=== PATIENT | female | born 1990 | race American Indian/Alaskan Native ===

== ENCOUNTER 2017-06-27 09:05 | Emergency (ER) | payer SELFPAY ==
[2017-06-27 09:19] VITALS: TEMP 98.1; BMI 43.6
[2017-06-27 10:17] LABS: URINE APPEARANCE CLOUDY; URINE BILIRUBIN NEGATIVE (NEGATIVE); URINE BLOOD NEGATIVE (NEGATIVE); URINE COLOR YELLOW; URINE GLUCOSE (UA) NEGATIVE (NEGATIVE); URINE KETONE TRACE (NEGATIVE); URINE NITRITE NEGATIVE (NEGATIVE); URINE UROBILINOGEN NEGATIVE mg/dL (0.2-1.0)
[2017-06-27 10:18] LABS: URINE LEUK ESTERASE 3+ (NEGATIVE); URINE PROTEIN 1+ (NEGATIVE)
[2017-06-27 10:21] LABS: URINE MUCUS MODERATE; URINE RBC 2 /hpf (0-3); URINE WBC 416 /hpf (3-5)
[2017-06-27 10:27] LABS: BASOPHIL 0.5 % (0-2.0); EOSINOPHIL 0.1 % (0-4.5); MCH 28.9 pg (25.7-33.7); MCHC 32.8 g/dl (32.0-36.0); MEAN CELL VOLUME 88.3 fl (80-96); MEAN PLT VOLUME 8.5 fl (7.5-11.1); NEUTROPHILS 69.7 % (42.8-82.8); PLATELET COUNT 345 K/MM3 (134-434); RDW 14.4 % (11.6-15.6)
--- NOTE | 2017-06-27 10:29 | PDOC ---
History of Present Illness - General Chief Complaint: Pain, Acute Stated Complaint: PAIN, 6 WKS Time Seen by Provider: 06/27/17 09:32 History Source: Patient Exam Limitations: No Limitations - History of Present Illness Travel History: No Initial Comments: 06/27/17 09:54 26-year-old female presents to the emergency department with complaints of lower abdominal cramping intimately for the past week associated with urinary frequency and dysuria. Patient denies vaginal discharge or vaginal bleeding. Patient states is currently 6 weeks and has a initial consultation with Dr. Douglas LAY OUT MAKER in 3 weeks. Patient states last week went to [facility] similar complaints and was given up his prescription for Keflex which she states completed yesterday along with a beta hCG which was recorded at 507. Patient states did not wait for ultrasound and went home. Patient has no other complaints at this time including fever, chills nausea or constipation. Timing/Duration: reports: constant Quality: reports: mild, cramping Abdominal Pain Onset Location: reports: suprapubic (mid) Pain Radiation: reports: no radiation Activities at Onset: reports: none Aggravating Factors: improves with: None Alleviating Factors: improves with: None Past History - Travel Traveled outside of the country in the last 30 days: No - Past Medical History Allergies/Adverse Reactions: Allergies Allergy/AdvReac Type Severity Reaction Status Date / Time No Known Allergies Allergy Verified 06/27/17 09:14 Home Medications: Ambulatory Orders Vits #93/Iron Fum/FA [ Formula Tablet] 1 each PO DAILY Other medical history: DENIES - Reproductive History LMP Normal: No Is Patient Now?: Yes (#): 2 Para: 1 - Immunization History Immunization Up to Date: Yes - Suicide/Smoking/Psychosocial Hx Smoking History: Never smoked Have you smoked in the past 12 months: No Information on smoking cessation initiated: No Hx Alcohol Use: No Drug/Substance Use Hx: No Patient Lives Alone: No Lives with/in: spouse/SO Review of Systems - Review of Systems Able to Perform ROS?: Yes Constitutional: No: Symptoms Reported HEENTM: No: Symptoms Reported Respiratory: No: Symptoms reported Cardiac (ROS): No: Symptoms Reported ABD/GI: Yes: Abdominal cramping : Yes: Dysuria, Frequency. No: Flank Pain Musculoskeletal: No: Symptoms Reported Integumentary: No: Symptoms Reported Neurological: No: Symptoms reported *Physical Exam - Vital Signs Last Vital Signs Temp Pulse Resp BP Pulse Ox 98.1 F 78 15 140/80 95 06/27/17 09:15 06/27/17 09:15 06/27/17 09:15 06/27/17 09:15 06/27/17 09:15 - Physical Exam General Appearance: Yes: Nourished, Appropriately Dressed. No: Apparent Distress Neck: positive: Supple Respiratory/Chest: positive: Lungs Clear, Normal Breath Sounds. negative: Respiratory Distress, Accessory Muscle Use Cardiovascular: positive: Regular Rhythm, Regular Rate. negative: Murmur Female Pelvic Exam: positive: normal external exam, other (pt refused internal exam). negative: discharge, vaginal bleeding Gastrointestinal/Abdominal: positive: Normal Bowel Sounds, Soft, Tenderness ( mild mid suprapubic. no rebound no guarding). negative: Distended Musculoskeletal: negative: CVA Tenderness Integumentary: positive: Normal Color, Warm, Moist Neurologic: positive: Motor Strength 5/5 (ambulatory) ED Treatment Course - LABORATORY CBC & Chemistry Diagram: 06/27/17 09:59 06/27/17 09:59 - RADIOLOGY Radiology Studies Ordered: Category Date Time Status <14WKS US [US] Stat Ultrasound 06/27/17 09:54 Ordered Medical Decision Making - Medical Decision Making 06/27/17 10:32 Patient currently 6 weeks but no complaints of urinary frequency and dysuria and lower abdominal cramping. Patient has not had an ultrasound for this and is due to see Dr. Santos and 3 weeks. Patient on exam had mild mid suprapubic tenderness and deferred internal exam patient with a CBC, comp, beta hCG along with urinalysis urine culture. Patient offered Tylenol but refused. Patient ordered for transvaginal less than 14 weeks ultrasound. Will r/o uti, ectopic, and assess renal function 06/27/17 12:54 Laboratory Tests 06/27/17 06/27/17 06/27/17 09:59 09:59 09:59 WBC 12.0 H Hgb 13.0 Hct 39.8 Plt Count 345 Neutrophils % 69.7 Sodium 137 Potassium 3.9 Chloride 103 Carbon Dioxide 29 Anion Gap 5 L BUN 3 L Creatinine 0.5 L Total Bilirubin 0.3 Beta HCG, Quant 1434.7 Urine Protein 1+ H Urine Ketones Trace H Urine Urobilinogen Negative Urine RBC 2 Urine WBC 416 Ultrasound shows a normal-appearing endometrium of 7 mm thickness with no sonographic evidence of a viable intrauterine gestation. If a very early as clinically suspected, correlate with serial beta hCG and sonogram as recommended. The ovaries are normal in size and texture with no adnexal masses or free fluid collections. We will contact her LAY OUT MAKER Dr. Douglas. 06/27/17 13:[address] Douglas in regards to patient's beta hCG and no visible IUP. She feels patient is trending appropriately and may not have an intrauterine until 1500 beta-hCG. She feels comfortable having patient follow up in the office. Patient will be discharged home with Macrobid for urinary tract infection. Urine culture was sent. *DC/Admit/Observation/Transfer - Discharge Dispostion Disposition: HOME Condition at time of disposition: Good - Referrals Referrals: Mira Douglas MD [Staff Physician] - - Patient Instructions Printed Discharge Instructions: DI for Urinary Tract Infection (UTI) Additional Instructions: Please take antibiotics as prescribed until completed. You may take Tylenol for any discomfort. Please also follow-up with Dr. Douglas as scheduled. otherwise return to ED if symptoms worsen prior to your follow-up.
[2017-06-27 11:12] LABS: ALK PHOS 94 U/L (45-117)
[2017-06-27 11:20] LABS: ALBUMIN 3.4 g/dl (3.4-5.0); ANION GAP 5 (8-16); BILIRUBIN,TOTAL 0.3 mg/dL (0.2-1.0); CO2 29 mmol/L (21-32); CREATININE 0.5 mg/dL (0.55-1.02); GLUCOSE,RANDOM 92 mg/dL (74-106); SGOT/AST 15 U/L (15-37); SGPT/ALT 24 U/L (12-78); TOT PROT 7.2 g/dl (6.4-8.2)
[2017-06-27 13:48] VITALS: BP 128/78; PULSE 80
== END 2017-06-27 13:48 | disposition home or self-care (01) ==
LOC: JER 09:05 → JERFT 09:05 → JER 13:48
DX: O26.891 Other specified pregnancy related conditions, first trimester (principal); Z3A.01 Less than 8 weeks gestation of pregnancy
CPT/HCPCS: 36415; 76801-TC; 76856-TC; 80053; 81003; 81015; 84702; 85025; 87086; 87186; 99282-25

== ENCOUNTER 2017-09-06 18:00 | Emergency (ER) | payer OTHER ==
[2017-09-06 18:13] VITALS: BP 136/83; PULSE 85; TEMP 98.2; BMI 44.9
--- NOTE | 2017-09-06 19:18 | PDOC ---
History of Present Illness - General Chief Complaint: Pain Stated Complaint: FATIGUE (15 WKS ) Time Seen by Provider: 09/06/17 19:17 - History of Present Illness Initial Comments: 09/06/17 19:42 26yo woman who presents with nausea and several episodes of NBNB this morning. She denies any abdominal pain, fever, chills, diarrhea, melena or blood stools. No others household members with similar. No recent travel or sick contacts. She has care. She reports generalized weakness and myalgia starting this morning. Last sono was normal. History of eclampsia with first child. 09/06/17 19:47 09/06/17 19:51 Past History - Past Medical History Allergies/Adverse Reactions: Allergies Allergy/AdvReac Type Severity Reaction Status Date / Time No Known Allergies Allergy Verified 09/06/17 18:13 Home Medications: Ambulatory Orders Nitrofurantoin Monohyd/M-Cryst [Macrobid -] 100 mg PO BID #14 capsule 06/27/17 Vits #93/Iron Fum/FA [ Formula Tablet] 1 each PO DAILY COPD: No - Reproductive History (#): 2 Para: 1 - Immunization History Immunization Up to Date: Yes - Suicide/Smoking/Psychosocial Hx Smoking History: Never smoked Have you smoked in the past 12 months: No Hx Alcohol Use: No Drug/Substance Use Hx: No Substance Use Type: None *Physical Exam - Vital Signs Last Vital Signs Temp Pulse Resp BP Pulse Ox 98.2 F 85 20 136/83 98 09/06/17 18:11 09/06/17 18:11 09/06/17 18:11 09/06/17 18:11 09/06/17 18:11 - Physical Exam General Appearance: Yes: Nourished, Appropriately Dressed HEENT: positive: Normal ENT Inspection Neck: positive: Supple. negative: Lymphadenopathy (R), Lymphadenopathy (L) Respiratory/Chest: positive: Lungs Clear, Normal Breath Sounds Cardiovascular: positive: Regular Rhythm, Regular Rate, S1, S2 Female Pelvic Exam: positive: other (refused pelvic exam) Gastrointestinal/Abdominal: positive: Normal Bowel Sounds, Soft, Protuberent Musculoskeletal: negative: CVA Tenderness Extremity: positive: Normal Inspection Integumentary: positive: Normal Color Neurologic: positive: Fully Oriented, Alert Procedures - Bedside Ultrasound Bedside Ultrasound: supervisor lamp shades Remarks: 12/06/17 20:25 Bedside sono performed. HR 171 bpm and normal motions were observed. ED Treatment Course - LABORATORY CBC & Chemistry Diagram: 09/06/17 20:16 09/06/17 20:16 Medical Decision Making - Medical Decision Making 09/06/17 19:49 26yo woman who presents with acute onset nausea and NBNB emesis. Differential includes, but not limited to hyperemsis gravidum vs viral gastroenteritis. Will do -UA -Quant B hcg -Blood Acetone -CBC and CMP -1L Fluids for hydration -Reglan for nausea 09/06/17 19:51 UA revealed 1+ ketones. Patient refused 1L IVF, and requesting to go home. Explained to patient that she was dehydrated, and would be benefit from IVF. Patient acknowledged understanding, but still requesting to go home. Patient was able to tolerate crackers, apple juice, and water with no further episodes of emesis. Reports nausea improved with Reglan. VSS are stable. Will discharge patient home with instructions to follow-up with NARCOTICS INVESTIGATOR and to return if she has persistent emesis or cannot tolerate PO intake. Patient agreed with plan , and to continue drinking fluids. *DC/Admit/Observation/Transfer Diagnosis at time of Disposition: Nausea & vomiting - Referrals Referrals: Mira Douglas MD [Staff Physician] - Jeancarlos Barrios MD [Primary Care Provider] - - Patient Instructions Printed Discharge Instructions: DI for Hyperemesis Gravidarum Additional Instructions: Please see your COMBATANT DIVER OFFICER within the next week. Continue to drink fluids to stay hydrated. Please return to the Emergency Department if you have continuing vomiting, can' t keep any flood or fluids down, or have new, worsening, or concerning symptoms. - Post Discharge Activity
[2017-09-06] MEDS ORDERED: METOCLOPRAMIDE HCL INJECTION 10 MG/2 ML VIAL IVPUSH ONE (19:42)
[2017-09-06 19:54] LABS: URINE APPEARANCE SLCLOUDY; URINE BILIRUBIN NEGATIVE (NEGATIVE); URINE BLOOD NEGATIVE (NEGATIVE); URINE COLOR YELLOW; URINE GLUCOSE (UA) NEGATIVE (NEGATIVE); URINE KETONE 1+ (NEGATIVE); URINE LEUK ESTERASE TRACE (NEGATIVE); URINE NITRITE NEGATIVE (NEGATIVE); URINE PROTEIN NEGATIVE (NEGATIVE); URINE UROBILINOGEN NEGATIVE mg/dL (0.2-1.0)
[2017-09-06] MEDS ORDERED: METOCLOPRAMIDE HCL INJECTION 10 MG/2 ML VIAL ONE (19:58)
[2017-09-06 20:00] LABS: URINE BACTERIA RARE /hpf (NONE SEEN); URINE MUCUS MODERATE; URINE WBC 5 /hpf (3-5)
[2017-09-06] MEDS ORDERED: NYSTATIN POWDER 100,000 UNITS/GM - 15 GM TOPICAL POWDER TP ONE (20:11)
--- NOTE | 2017-09-06 20:15 | PDOC ---
Attending Attestation - Resident Resident Name: Alena Menon - ED Attending Attestation I have performed the following: I have examined & evaluated the patient, The case was reviewed & discussed with the resident, I agree w/resident's findings & plan, Exceptions are as noted - HPI HPI: 09/06/17 20:11 26-year-old currently 15+ weeks here today with nausea vomiting today 4. Patient states is more vomiting than usual for her denies abdominal pain no loss of fluid or vaginal bleeding no urinary complaints no sick contacts primary OB is Dr. Santos. No fever no chills no other complaints - Physicial Exam PE: 09/06/17 20:13 Awake alert no acute distress. Lungs are clear bilaterally. Heart is regular no murmurs rubs or gallops. Abdomen soft nontender. Pelvic patient refused. Extremities warm well perfused. - Medical Decision Making 09/06/17 20:14 26-year-old at 15 weeks with vomiting times for nontender abdominal exam differential includes acidosis, hypokalemia, hyperemesis, dehydration Plan: Bedside evaluation for heart rate and well-being. IV hydration and electrolytes ketones antiemetics and reassessment Focused ED bedside ultrasound, obstetrics Indication: Evaluate well-being Uterus scanned into planes with the curvilinear probe. movement noted heart rate measured an M mode at 1 71 bpm Impression: live IUp
[2017-09-06] MEDS: SODIUM CHLORIDE 1,000 ML IV STA ×2 (20:26→21:21)
[2017-09-06 20:30] LABS: BASOPHIL 0.5 % (0-2.0); EOSINOPHIL 0.2 % (0-4.5); MCH 29.6 pg (25.7-33.7); MCHC 33.6 g/dl (32.0-36.0); MEAN PLT VOLUME 9.1 fl (7.5-11.1); NEUTROPHILS 78.8 % (42.8-82.8); PLATELET COUNT 268 K/MM3 (134-434); WHITE BLOOD COUNT 13.8 K/mm3 (4.0-10.0)
[2017-09-06 21:05] LABS: ALBUMIN 3.2 g/dl (3.4-5.0); ANION GAP 9 (8-16); BILIRUBIN,TOTAL 0.5 mg/dL (0.2-1.0); CALCIUM 8.8 mg/dL (8.5-10.1); CO2 24 mmol/L (21-32); CREATININE 0.5 mg/dL (0.55-1.02); GLUCOSE,RANDOM 95 mg/dL (74-106); SGOT/AST 10 U/L (15-37); SGPT/ALT 15 U/L (12-78); TOT PROT 7.3 g/dl (6.4-8.2)
[2017-09-06 21:06] LABS: ALK PHOS 88 U/L (45-117)
[2017-09-06 21:15] LABS: ACETONE SERUM NEGATIVE (NEGATIVE)
[2017-09-06 22:43] LABS: URINE LEUK ESTERASE Negative (NEGATIVE)
== END 2017-09-06 21:26 | disposition home or self-care (01) ==
LOC: JER 18:00
PROC: 3E033GC Introduction of Other Therapeutic Substance into Peripheral Vein, Percutaneous Approach (ICD-10-PCS; principal; 2017-09-06)
DX: O26.892 Other specified pregnancy related conditions, second trimester (principal); Z3A.15 15 weeks gestation of pregnancy
CPT/HCPCS: 36415; 80053; 81003; 81015; 82009; 84703; 85025; 99284-25

== ENCOUNTER 2018-02-21 07:45 | Inpatient (IN) | payer OTHER ==
[2018-02-21] MEDS: ELECTROLYTE-148 SOLN 1,000 ML IV SCH ×2 (08:00→10:05)
[2018-02-21 08:45] VITALS: BMI 49.1
[2018-02-21] MEDS ORDERED: oxyCODONE HCL 5 MG TABLET PO PRN ×2 (10:45)
[2018-02-21] MEDS ORDERED: METHYLERGONOVINE MALEATE 0.2 MG/1 ML AMP IM PRN (10:45)
[2018-02-21] MEDS ORDERED: CITRIC ACID/SODIUM CITRATE 30 ML UNIT-DOSE CUP PO ONE (10:49)
[2018-02-21] MEDS ORDERED: morphine SULFATE/Preservative Free 0.5 MG/ML (1cc Syringe) ONE (11:03)
[2018-02-21] MEDS ORDERED: ceFAZolin SODIUM 1 GM VIAL ONE ×3 (11:03→11:19)
[2018-02-21] MEDS ORDERED: BUPIVACAINE 0.75% IN DEXTROSE/PF 2ML AMPULE NR ONE (11:03)
--- NOTE | 2018-02-21 11:04 | HP ---
Past Medical History - Admission Chief Complaint: Here for repeat delivery. History of Present Illness: 27 y/o with SIUP at 39+ weeks here for scheduled repeat delivery. Patient has complicated by maternal obesity. H/o delivery for pre Eclampsia at 37 weeks in past. No HTn this . Positive GBS. Negative HIV. O positive blood type History Source: Patient, Medical Record Limitations to Obtaining History: No Limitations - Past Medical History Cardiovascular: Yes: HTN (h/o Pre Eclampsia with past delivery) Pulmonary: No: Asthma, COPD Gastrointestinal: No: GERD ...: 2 ...Para: 1 ...Term: 1 ...LMP: 05/12/17 ... Weeks Gestation by Dates: 40.5 ...EDC by Dates: 02/16/18 ...EDC by Sono: 02/25/18 Heme/Onc: No: Anemia Infectious Disease: No: MRSA, STD's Psych: No: Anxiety, Bipolar, Depression Endocrine: No: Diabetes Mellitus - Past Surgical History Past Surgical History: Yes: Hx Myomectomy: No Hx Transabdominal Cerclage: No - Smoking History Smoking history: Never smoked Have you smoked in the past 12 months: No - Alcohol/Substance Use Hx Alcohol Use: No - Social History Usual Living Arrangement: Yes: With Spouse ADL: Independent History of Recent Travel: No Home Medications - Allergies Allergies/Adverse Reactions: Allergies Allergy/AdvReac Type Severity Reaction Status Date / Time No Known Allergies Allergy Verified 02/21/18 08:29 - Home Medications Home Medications: Ambulatory Orders NK [No Known Home Medication] 02/21/18 Review of Systems - Review of Systems Constitutional: reports: No Symptoms Eyes: reports: No Symptoms HENT: reports: No Symptoms Neck: reports: No Symptoms Cardiovascular: reports: No Symptoms Respiratory: reports: No Symptoms Gastrointestinal: reports: No Symptoms Genitourinary: reports: No Symptoms Breasts: reports: No Symptoms Reported Musculoskeletal: reports: No Symptoms Integumentary: reports: No Symptoms Neurological: reports: No Symptoms Endocrine: reports: No Symptoms Hematology/Lymphatic: reports: No Symptoms Psychiatric: reports: No Symptoms Physical Exam - Maternity Vital Signs: Vital Signs Temperature 98.4 F 02/21/18 09:24 Pulse Rate 76 02/21/18 09:24 Respiratory Rate 20 02/21/18 09:24 Blood Pressure 136/78 05/23/18 09:24 O2 Sat by Pulse Oximetry (%) Constitutional: Yes: Well Nourished, No Distress, Calm Eyes: Yes: Conjunctiva Clear, EOM Intact HENT: Yes: Atraumatic, Normocephalic Neck: Yes: Supple, Trachea Midline Breast(s): Yes: WNL - Abdominal Exam/OB Number of Fetuses: Single Presentation: Vertex Contractions: Yes Regularity: Irregular Intensity: Unaware Category: I Decelerations: None - Vaginal Exam/OB Speculum Exam: No Amniotic Membrane Status: Intact - Physical Exam Psychiatric: Yes: Alert, Oriented Hemorrhage Risk Assessment - Risk Factors Medium Risk Factors: Yes: Prior , uterine surgery,or multiple laparotomies, Obesity (BMI >40) Risk Score: 2 Risk Level: High Risk Problem List - Problems (1) History of delivery affecting Code(s): O34.219 - MATERNAL CARE FOR UNSP TYPE SCAR FROM PREVIOUS DEL (2) Obesity affecting in third trimester Code(s): O99.213 - OBESITY COMPLICATING , THIRD TRIMESTER Assessment/Plan 27 y/o with h/o prior delivery here for scheduled repeat c section. AFVSS FHTS cat 1 h/o Pre Eclampsia, BPs normal during and so far this admission obesity - will plan for lovenox post NPO braxton catheter anesthesia and nursery aware
[2018-02-21] MEDS ORDERED: OXYTOCIN 20 UNITS in 0.9% NS 40 UNIT/2,000 ML INFUS.BAG IV ONE (11:12)
[2018-02-21] MEDS ORDERED: ACETAMINOPHEN 325 MG TABLET (FP) PO PRN (11:22)
--- NOTE | 2018-02-21 12:00 | OP ---
Operative Note - Note: Operative Date: 02/21/18 ([id number]) Pre-Operative Diagnosis: prior delivery Operation: repeat delivery Findings: normal b/l tubes and ovaries Post-Operative Diagnosis: Same as Pre-op Surgeon: Amber Victoria Prefabricated Houses Trimmer: Anjali Winter Anesthesiologist/GREENSKEEPER SUPERVISOR: Alejo Mcguire Anesthesia: Spinal Specimens Removed: placenta Estimated Blood Loss (mls): 600 Operative Report Dictated: Yes
[2018-02-21] MEDS: OXYTOCIN 20 UNITS in 0.9% NS 20 UNIT/1,000 ML INFUS.BAG IV SCH (12:30)
--- NOTE | 2018-02-21 12:36 | SURG ---
Surgery Color Strainer Note Color Strainer: Jassi Dahl PA-C Date of Service: 02/21/18 Diagnosis: with prior history Procedure: I was present for the entirety of the operative procedure. For further detail, please refer to operative report.
[2018-02-21] MEDS ORDERED: IBUPROFEN 800 MG/8 ML IJ IVPB ONE (13:39)
[2018-02-21] MEDS: IBUPROFEN 800 MG/8 ML IJ IVPB PRN ×2 (13:45→21:47)
--- NOTE | 2018-02-21 13:46 | OP ---
DATE OF OPERATION: 02/21/2018 PREOPERATIVE DIAGNOSIS: Prior delivery, single intrauterine at 39 weeks. POSTOPERATIVE DIAGNOSIS: Prior section, term at 39 weeks gestation. PROCEDURE: Repeat low transverse delivery. SURGEON: Amber Victoria MD CRM CAMPAIGN MANAGER: SAKSHI Jenkins ANESTHESIA: Spinal. ANESTHESIOLOGIST: Alejo Wilcox MD ESTIMATED BLOOD LOSS: 600 mL. COMPLICATIONS: None. SPECIMENS: Placenta and cord blood. COUNTS: Sponge, needle, and instrument counts were correct. DISPOSITION: Stable to the PACU. BRIEF HISTORY AND PROCEDURE: Patient is a 27-year-old female at 39.3 weeks gestation who was admitted to [facility] on February 21, 2018, for a scheduled repeat delivery. The patient was consented for the procedure. Upon admission to the hospital, after the patient and the surgeon were mutually identified, the patient was taken back to the operating room where she was given spinal anesthesia and placed in the dorsal supine position. A hard time-out was performed. A Pfannenstiel skin incision was created in the skin with a scalpel and carried to the underlying layer of rectus fascia with the scalpel as well as with the Bovie. The fascia was incised in the midline, and the fascial incision was carried in superolateral direction with the Bovie. The fascia was tented upward and dissected off the underlying layer of rectus muscle with the Bovie. The midline musculature was identified and laterally. The peritoneum was identified and entered bluntly, and then carefully dissected to allow for adequate room for delivery. The bladder blade was then inserted. A transverse incision was created on the lower uterine segment, which was extended in the superolateral direction bluntly. The was then delivered from the right occiput transverse position. The anterior and posterior shoulders were delivered with ease along with the remainder of the . The cord was clamped twice and cut in between. The infant was taken over to the warmer to be assessed by the nursery staff. The placenta was then delivered manually. A 3-vessel cord was noted. The uterus was exteriorized from the abdomen, inspected, and cleared of all amniotic membrane and debris with a dry lap sponge. The hysterotomy was reapproximated in a double-layer closure first with 1 Vicryl suture in a running locked fashion, second with a 0 Biosyn suture in a running locked fashion. Excellent hemostasis was achieved. The posterior cul-se-sac was suctioned. Bilateral tubes and ovaries were noted to be normal. The uterus was placed back in the abdomen. Bilateral gutters were inspected and cleared of all blood clot and debris. The hysterotomy was then reexamined and noted to be hemostatic. The peritoneum was reapproximated in a running fashion using 2-0 chromic. The musculature was reapproximated in 2 interrupted sutures using Biosyn and chromic suture. The fascia was reapproximated using 1 Vicryl in a running fashion. The subcutaneous tissue was irrigated and reapproximated in a several-layer closure using Vicryl suture, and the skin was reapproximated in a subcuticular fashion. Steri-Strips were applied. The patient tolerated the procedure well, was recovering in stable condition in the postop area after delivery. AMBER VICTORIA DO /[id number]
[2018-02-21] MEDS: ACETAMINOPHEN 325 MG TABLET (FP) PO PRN (18:44)
[2018-02-22] MEDS: IBUPROFEN 800 MG/8 ML IJ IVPB PRN (05:35)
[2018-02-22] MEDS: SIMETHICONE 80 MG TAB.CHEW (FP) PO PRN ×3 (08:15→20:34)
--- NOTE | 2018-02-22 08:50 | PN ---
Post Progress Note - Subjective Subjective: 27 yo Para 2 status post repeat , seen and evaluated. Doing well. Post Day: 1 Type of Delivery: Repeat C/S Vital Signs: Vital Signs Temperature 98.2 F 02/22/18 08:13 Pulse Rate 85 02/22/18 08:13 Respiratory Rate 20 02/22/18 08:13 Blood Pressure 104/64 02/22/18 08:13 O2 Sat by Pulse Oximetry (%) 100 02/21/18 13:45 Breast Exam: Yes: Soft Uterus: Yes: Fundus Firm Incision: Yes: Dressing dry and intact Abdomen/GI: Yes: Abdomen soft, Tolerating PO Lochia: Yes: Rubra Lochia, amount: Small Extremities: Yes: Calves non-tender Perineum: Yes: Intact Activity: Ambulating Problem List - Problems (1) Status post repeat low transverse section Code(s): Z98.891 - HISTORY OF UTERINE SCAR FROM PREVIOUS SURGERY Assessment/Plan Status post repeat Stable Ambulation Analgesia as needed Continue post op care
[2018-02-22 09:03] LABS: BASO % 0.3 % (0-2.0); EOS % 0.2 % (0-4.5); HEMATOCRIT 29.7 % (32.4-45.2); HEMOGLOBIN 9.7 GM/dL (10.7-15.3); MCH 29.1 pg (25.7-33.7); MCHC 32.8 g/dl (32.0-36.0); MEAN CELL VOLUME 88.8 fl (80-96); MEAN PLT VOLUME 9.3 fl (7.5-11.1); MONO % 4.1 % (3.8-10.2); NEUT % 81.4 % (42.8-82.8); PLATELET COUNT 194 K/MM3 (134-434); RBC 3.34 M/mm3 (3.60-5.2); RDW 15.7 % (11.6-15.6); WHITE BLOOD COUNT 11.2 K/mm3 (4.0-10.0)
[2018-02-22] MEDS: OXYTOCIN 20 UNITS in 0.9% NS 20 UNIT/1,000 ML INFUS.BAG IV SCH (10:00)
[2018-02-22] MEDS: ENOXAPARIN NA (PORCINE) 40 MG/0.4 ML DISP.SYRIN SQ SCH (10:15)
[2018-02-22] MEDS ORDERED: BISACODYL 10 MG SUPP.RECT RC PRN (10:46)
--- NOTE | 2018-02-22 13:13 | PN ---
Progress Note (short form) - Note Progress Note: Post op day#1.S/p C section under spinal anesthesia with duramorph uneventful.Patient stable and c/o some pain for which she is on medication.No any anesthesia related problem.Patient DC from the anesthesia care.
[2018-02-22] MEDS: IBUPROFEN 600 MG TABLET (FP) PO PRN ×2 (13:32→20:34)
[2018-02-22] MEDS: ACETAMINOPHEN 325 MG TABLET (FP) PO PRN (20:35)
[2018-02-23] MEDS: SIMETHICONE 80 MG TAB.CHEW (FP) PO PRN ×4 (04:43→21:14)
[2018-02-23] MEDS: IBUPROFEN 600 MG TABLET (FP) PO PRN ×4 (04:46→21:18)
[2018-02-23] MEDS: ACETAMINOPHEN 325 MG TABLET (FP) PO PRN ×4 (04:46→21:17)
[2018-02-23] MEDS: ENOXAPARIN NA (PORCINE) 40 MG/0.4 ML DISP.SYRIN SQ SCH (09:36)
--- NOTE | 2018-02-23 14:05 | PN ---
Post Progress Note - Subjective Subjective: PT seen/evaluated and doing well. Pain controlled. Tolerating diet. Denies CP/ SOB/F/C/LUGO. Showering, voiding, passing flatus. No other complaints. Type of Delivery: Repeat C/S Vital Signs: Vital Signs Temperature 98.0 F 02/23/18 08:50 Pulse Rate 76 02/23/18 08:50 Respiratory Rate 20 02/23/18 08:50 Blood Pressure 125/89 02/23/18 08:50 O2 Sat by Pulse Oximetry (%) 100 02/21/18 13:45 Uterus: Yes: Fundus Firm Incision: Yes: Sutures intact Abdomen/GI: Yes: Abdomen soft, Tender (appropriate post surgical tenderness), Passing flatus, Tolerating PO. No: Abdominal Distention Lochia: Yes: Rubra Extremities: Yes: Edema (+1 nonpitting b/l LE edema) Perineum: Yes: Intact Activity: Ambulating - Labs Labs: CBC WBC 11.2 K/mm3 (4.0-10.0) H 02/22/18 08:00 RBC 3.34 M/mm3 (3.60-5.2) L 02/22/18 08:00 Hgb 9.7 GM/dL (10.7-15.3) L D 02/22/18 08:00 Hct 29.7 % (32.4-45.2) L D 02/22/18 08:00 MCV 88.8 fl (80-96) 02/22/18 08:00 MCH 29.1 pg (25.7-33.7) 02/22/18 08:00 MCHC 32.8 g/dl (32.0-36.0) 02/22/18 08:00 RDW 15.7 % (11.6-15.6) H 02/22/18 08:00 Plt Count 194 K/MM3 (134-434) D 02/22/18 08:00 MPV 9.3 fl (7.5-11.1) 02/22/18 08:00 Neutrophils % 81.4 % (42.8-82.8) 02/22/18 08:00 Lymphocytes % 14.0 % (8-40) D 02/22/18 08:00 Monocytes % 4.1 % (3.8-10.2) 02/22/18 08:00 Eosinophils % 0.2 % (0-4.5) D 02/22/18 08:00 Basophils % 0.3 % (0-2.0) 02/22/18 08:00 Nucleated RBC % 0 % (0-0) 02/22/18 08:00 Problem List - Problems (1) History of delivery affecting Code(s): O34.219 - MATERNAL CARE FOR UNSP TYPE SCAR FROM PREVIOUS DEL (2) Obesity affecting in third trimester Code(s): O99.213 - OBESITY COMPLICATING , THIRD TRIMESTER (3) delivery delivered Code(s): O82 - ENCOUNTER FOR DELIVERY WITHOUT INDICATION Assessment/Plan 27 y/o POD#2 s/p repeat LTCS, doing well. AFVSS Hb 9.7 regular diet encourage ambulation lovenox for VTE PPx discharge home in a.m.
--- NOTE | 2018-02-23 14:08 | DS ---
Physical Exam-RETAIL INVENTORY CONTROL CLERK Vital Signs: Vital Signs Temperature 98.0 F 02/23/18 08:50 Pulse Rate 76 02/23/18 08:50 Respiratory Rate 20 02/23/18 08:50 Blood Pressure 125/89 02/23/18 08:50 O2 Sat by Pulse Oximetry (%) 100 02/21/18 13:45 Constitutional: Yes: Well Nourished, No Distress, Calm Eyes: Yes: Conjunctiva Clear, EOM Intact HENT: Yes: Atraumatic, Normocephalic Neck: Yes: Trachea Midline Respiratory: Yes: WNL Gastrointestinal: Yes: Normal Bowel Sounds, Soft ....Post : Yes: Uterus firm, Uterus non-tender Wound/Incision: Yes: Clean/Dry, Well Approximated, Sutures Intact Neurological: Yes: Alert, Oriented Psychiatric: Yes: Alert, Oriented Labs: CBC, BMP 02/22/18 08:00 Delivery - Delivery Type of Anesthesia: Spinal Episiotomy/Laceration: None EBL (cc): 500 Delivery, Single - Stages of Labor Date of Delivery: 02/21/18 Time of Delivery: 11:31 Time Placenta Delivered: 11:32 - Condition of 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 Pt underwent uncomplicated surgery and post recovery and was discharged home in stable condition on postop day 3. Condition: Good - Instructions Diet, Activity, Other Instructions: Physical activity Resume your normal everyday activity as tolerated no heavy lifting or strenuous exercise until seen by your surgeon. You may walk unlimited amounts and climb stairs. You may resume driving the car when you feel safe and comfortable behind the wheel. No sexual activity as instructed. Wound care . If there are tapes on the skin leave them in place. They will peel off in the next 7 to 10 days. Do Not Peel them off. You may shower the day after surgery. If there are tapes present on the skin, you may shower over them. Diet There are no dietary restrictions. Eat healthy, high-fiber foods. Drink 6 to 8 glasses of liquid each day. This will assist in keeping your bowels regular. Pain management You may take Tylenol or Ibuprofen (for example, Motrin, Advil etc.) for mild pain. If any prescription is sent to the pharmacy, please use as directed for severe pain. Call MD for any of the following: Severe pain not relieved by medication Fever of 101 or higher Excessive bleeding or drainage on dressing Inability to urinate Referrals: Amber Victoria DO [Staff Physician] - 1 Week Disposition: HOME - Home Medications Comprehensive Discharge Medication List: Ambulatory Orders Ibuprofen [Motrin -] 600 mg PO QID PRN #28 tablet 02/23/18
[2018-02-24] MEDS: ACETAMINOPHEN 325 MG TABLET (FP) PO PRN ×3 (02:15→11:57)
[2018-02-24] MEDS: SIMETHICONE 80 MG TAB.CHEW (FP) PO PRN ×3 (02:16→11:56)
[2018-02-24] MEDS: IBUPROFEN 600 MG TABLET (FP) PO PRN ×3 (02:17→11:56)
[2018-02-24 07:41] VITALS: BP 121/61; PULSE 71; TEMP 98
[2018-02-24 08:05] LABS: BASO % 0.2 % (0-2.0); EOS % 0.8 % (0-4.5); HEMATOCRIT 27.3 % (32.4-45.2); HEMOGLOBIN 9.1 GM/dL (10.7-15.3); LYMPH % 20.1 % (8-40); MCH 29.5 pg (25.7-33.7); MCHC 33.2 g/dl (32.0-36.0); MEAN PLT VOLUME 9.1 fl (7.5-11.1); MONO % 4.6 % (3.8-10.2); NEUT % 74.3 % (42.8-82.8); PLATELET COUNT 219 K/MM3 (134-434); RBC 3.07 M/mm3 (3.60-5.2); RDW 15.9 % (11.6-15.6); WHITE BLOOD COUNT 8.9 K/mm3 (4.0-10.0)
[2018-02-24] MEDS: ENOXAPARIN NA (PORCINE) 40 MG/0.4 ML DISP.SYRIN SQ SCH (10:06)
--- NOTE | 2018-03-02 09:27 | PATH ---
Surgical Pathology Report Patient Name: KONSTANTIN MARQUEZ [facility]. Rec. #: [id number] /Age/Gender: 1990 (Age: 27) / F Account: [id number] Location: [facility] OBS/WHARFINGER CHIEF Taken: 02/21/2018 Received: 02/22/2018 Reported: 03/02/2018 Physicians: Mira Douglas M.D. Specimen(s) Received PLACENTA Clinical History EDC 02/25/18 Final Diagnosis PLACENTA: THIRD TRIMESTER PLACENTA WITH FOCAL INFARCTION (1.5 CM IN GREATEST DIMENSION) AND CHORANGIOSIS. TRIVASCULAR CORD. MEMBRANES, NO DIAGNOSTIC ABNORMALITIES. Electronically Signed Homer Pack M.D. Gross Description The specimen is received fresh labeled placenta and is a 478 gram, 15.5 x 13.0 x 3.5 cm. placenta with attached membranes and umbilical cord. The attached membranes are loredo, translucent with focal opacities and insert marginally. The umbilical cord measures 35 cm. in length and averages 1.1 cm. in diameter. The cord inserts eccentrically, 3.5 cm. to the nearest margin. No true knots or strictures are identified. Cut surface of the umbilical cord reveals 3 vessels. The surface is perry-blue with minimal fibrin deposition and appropriate caliber vessels. The maternal surface is red-brown with focal defects. Sectioning reveals a 1.5 cm in greatest dimension intraparenchymal lesion. The remaining placental parenchyma is red-brown and spongy. Medical Dosimetrist sections are submitted in 4 cassettes as follows: 1-membrane rolls and umbilical cord; 2-lesion; 3-4-full thickness sections of placenta. 02/28/2018 [facility]02/28/2018
== END 2018-02-24 12:50 | disposition home or self-care (01) | DRG 540 ==
LOC: JLDR 07:45 → J3W 15:20
PROVIDERS: ADMIT Obstetrics & Gynecology; ATTEND Obstetrics & Gynecology
PROC: 10D00Z1 Extraction of Products of Conception, Low, Open Approach (ICD-10-PCS; principal; 2018-02-21)
DX: O34.211 Maternal care for low transverse scar from previous cesarean delivery (principal); O99.214 Obesity complicating childbirth; E66.9 Obesity, unspecified; Z68.42 Body mass index [BMI] 45.0-49.9, adult; Z3A.39 39 weeks gestation of pregnancy; Z37.0 Single live birth
CPT/HCPCS: 36415; 85025; 88307-TC

== ENCOUNTER 2022-12-08 07:44 | Inpatient (IN) | payer OTHER ==
[2022-12-08] MEDS ORDERED: HEPARIN NA (PORCINE) 5,000 UNITS/ML 1ML VIAL SQ ONE (09:18)
[2022-12-08] MEDS ORDERED: CITRIC ACID/SODIUM CITRATE 30 ML UNIT-DOSE CUP PO ONE (09:18)
[2022-12-08] MEDS ORDERED: WITCH HAZEL 50% (TUCKS) 40 PAD/JAR PAD TP PRN (09:22)
[2022-12-08] MEDS ORDERED: ACETAMINOPHEN 325 MG TABLET (FP) PO PRN (09:22)
[2022-12-08] MEDS ORDERED: METHYLERGONOVINE MALEATE 0.2 MG/1 ML AMP IM PRN (09:22)
[2022-12-08] MEDS ORDERED: BENZOCAINE 28 GM HEMORRHOIDAL OINTMENT TP PRN (09:22)
[2022-12-08] MEDS ORDERED: BENZOCAINE 20% 57 GM BOTTLE TP PRN (09:22)
[2022-12-08] MEDS ORDERED: ELECTROLYTE-148 SOLN 1,000 ML IV SCH (09:30)
[2022-12-08] MEDS ORDERED: POTASSIUM CHLORIDE 20 MEQ PREMIX IVPB 100 ML IVPB ONE (09:54)
[2022-12-08 10:09] VITALS: BMI 49.9
[2022-12-08] MEDS ORDERED: ONDANSETRON 4 MG/2 ML VIAL IVPUSH PRN (10:18)
[2022-12-08] MEDS ORDERED: FENTANYL CITRATE/PF 50 MCG/ML VIAL ONE (10:29)
[2022-12-08] MEDS ORDERED: morphine SULFATE (PF) 1 MG/2 ML SYRINGE ONE (10:29)
[2022-12-08] MEDS ORDERED: PHENYLEPHRINE HCL 10 MG/1 ML SINGLE DOSE VIAL ONE (10:30)
[2022-12-08] MEDS ORDERED: ceFAZolin SODIUM 1 GM VIAL ONE (10:50)
[2022-12-08 10:52] LABS: RETICULOCYTES 1.58 % (0.5-1.5)
[2022-12-08] MEDS ORDERED: ONDANSETRON 4 MG/2 ML VIAL ONE (10:54)
[2022-12-08 11:01] LABS: URIC ACID 5.2 mg/dL (2.6-7.2)
[2022-12-08] MEDS ORDERED: OXYTOCIN 10 UNITS/ML VIAL ONE (11:02)
[2022-12-08 11:49] LABS: CORD BASE EXCESS -0.3 mmol/L (0-2); CORD HCO3 27.4 mmHg (20-29); CORD PCO2 57.6 mmHg (30-78); CORD pH 7.295 (7.14-7.44)
[2022-12-08] MEDS: OXYTOCIN 20 UNITS in 0.9% NS 20 UNIT/1,000 ML INFUS.BAG IV SCH ×2 (11:50→15:00)
[2022-12-08 11:52] LABS: CORD BASE EXCESS -1.8 mmol/L (0-2); CORD HCO3 24.8 mmHg (20-29); CORD PCO2 49.2 mmHg (30-78); CORD pH 7.32 (7.14-7.44)
[2022-12-08] MEDS ORDERED: OXYTOCIN 20 UNITS in 0.9% NS 20 UNIT/1,000 ML INFUS.BAG IV ONE ×2 (11:54→14:27)
[2022-12-08] MEDS ORDERED: IBUPROFEN 800 MG/8 ML IJ IVPB ONE (12:18)
[2022-12-08] MEDS: IBUPROFEN 800 MG/8 ML IJ IVPB PRN ×2 (12:18→20:14)
[2022-12-08] MEDS ORDERED: TRANEXAMIC ACID 1000 MG/10 ML VIAL IVPB ONE (14:30)
[2022-12-08] MEDS: FERROUS SO4 325 MG TABLET (FP) PO SCH ×2 (14:36→22:00)
[2022-12-08] MEDS: PRENATAL VITAMINS W/ FOLIC ACID TABLET (FP) PO SCH (14:36)
[2022-12-08] MEDS: AMPICILLIN NA/SULBACTAM NA 1.5 GM in SODIUM CHLORIDE 100 ML IVPB SCH ×2 (15:45→22:13)
[2022-12-08] MEDS ORDERED: ACETAMINOPHEN 1000 MG/100 ML BAG IVPB ONE (18:23)
[2022-12-08] MEDS: SIMETHICONE 80 MG TAB.CHEW (FP) PO PRN (20:23)
[2022-12-08] MEDS: ALBUTEROL SO4 HFA INHALER IH PRN (21:20)
[2022-12-08] MEDS ORDERED: oxyCODONE HCL 5 MG TABLET PO PRN (21:22)
[2022-12-09] MEDS: oxyCODONE HCL 5 MG TABLET PO PRN ×2 (01:09→20:31)
[2022-12-09 02:35] VITALS: RESP 18
[2022-12-09] MEDS: AMPICILLIN NA/SULBACTAM NA 1.5 GM in SODIUM CHLORIDE 100 ML IVPB SCH ×2 (03:37→09:41)
[2022-12-09] MEDS: SIMETHICONE 80 MG TAB.CHEW (FP) PO PRN ×4 (03:39→23:06)
[2022-12-09] MEDS: ALBUTEROL SO4 HFA INHALER IH PRN (03:40)
[2022-12-09] MEDS: IBUPROFEN 600 MG TABLET (FP) PO PRN ×4 (04:43→23:06)
[2022-12-09] MEDS ORDERED: ACETAMINOPHEN INJECTION 100 ML IVPB ONE (06:17)
[2022-12-09] MEDS: ACETAMINOPHEN 1000 MG/100 ML BAG IVPB PRN ×2 (06:29→09:42)
[2022-12-09 09:07] LABS: BASO % 0.1 % (0-2.0); EOS % 0.3 % (0-4.5); HEMATOCRIT 25.8 % (32.4-45.2); HEMOGLOBIN 8.4 GM/dL (10.7-15.3); LYMPH % 16.2 % (8-40); MCH 28.6 pg (25.7-33.7); MCHC 32.8 g/dl (32.0-36.0); MEAN CELL VOLUME 87.2 fl (80-96); MEAN PLT VOLUME 9.3 fl (7.5-11.1); MONO % 5.2 % (3.8-10.2); NEUT % 78.2 % (42.8-82.8); PLATELET COUNT 192 10^3/uL (134-434); RBC 2.96 M/mm3 (3.60-5.2); RDW 17.4 % (11.6-15.6); WHITE BLOOD COUNT 9.5 K/mm3 (4.0-10.0)
[2022-12-09] MEDS ORDERED: BISACODYL 10 MG SUPP.RECT RC PRN (09:22)
[2022-12-09] MEDS: OXYTOCIN 20 UNITS in 0.9% NS 20 UNIT/1,000 ML INFUS.BAG IV SCH (09:42)
[2022-12-09] MEDS: PRENATAL VITAMINS W/ FOLIC ACID TABLET (FP) PO SCH (09:43)
[2022-12-09] MEDS: ENOXAPARIN NA (PORCINE) 30 MG/0.3 ML DISP.SYRIN SQ SCH (09:44)
[2022-12-09] MEDS: FERROUS SO4 325 MG TABLET (FP) PO SCH ×3 (09:44→21:05)
[2022-12-09] MEDS ORDERED: ENOXAPARIN NA (PORCINE) 30 MG/0.3 ML DISP.SYRIN SQ SCH (10:00)
[2022-12-09 21:07] LABS: BASO % 0.3 % (0-2.0); EOS % 0.3 % (0-4.5); HEMATOCRIT 26.9 % (32.4-45.2); HEMOGLOBIN 8.7 GM/dL (10.7-15.3); LYMPH % 17.4 % (8-40); MCH 27.5 pg (25.7-33.7); MCHC 32.2 g/dl (32.0-36.0); MEAN CELL VOLUME 85.5 fl (80-96); MONO % 5.4 % (3.8-10.2); NEUT % 76.6 % (42.8-82.8); RBC 3.15 M/mm3 (3.60-5.2); RDW 17.6 % (11.6-15.6)
[2022-12-10] MEDS: IBUPROFEN 600 MG TABLET (FP) PO PRN ×2 (08:08→12:36)
[2022-12-10 09:04] VITALS: BP 127/78; PULSE 88; TEMP 98
[2022-12-10 09:37] LABS: BASO % 0.2 % (0-2.0); EOS % 0.5 % (0-4.5); HEMATOCRIT 25.2 % (32.4-45.2); HEMOGLOBIN 8.4 GM/dL (10.7-15.3); LYMPH % 19.3 % (8-40); MCHC 33.4 g/dl (32.0-36.0); MEAN PLT VOLUME 8.8 fl (7.5-11.1); MONO % 3.3 % (3.8-10.2); NEUT % 76.7 % (42.8-82.8); PLATELET COUNT 231 10^3/uL (134-434); RDW 17.2 % (11.6-15.6); WHITE BLOOD COUNT 9.5 K/mm3 (4.0-10.0)
[2022-12-10] MEDS: FERROUS SO4 325 MG TABLET (FP) PO SCH (12:38)
[2022-12-10] MEDS: ENOXAPARIN NA (PORCINE) 30 MG/0.3 ML DISP.SYRIN SQ SCH (12:38)
[2022-12-10] MEDS: PRENATAL VITAMINS W/ FOLIC ACID TABLET (FP) PO SCH (12:39)
[2022-12-10] MEDS: oxyCODONE HCL 5 MG TABLET PO PRN (15:26)
== END 2022-12-10 15:55 | disposition home or self-care (01) | DRG 540 ==
LOC: JLDR 07:44 → J3W 16:48
PROVIDERS: ADMIT Obstetrics & Gynecology; ATTEND Obstetrics & Gynecology
PROC: 10D00Z1 Extraction of Products of Conception, Low, Open Approach (ICD-10-PCS; principal; 2022-12-08)
DX: O13.4 Gestational [pregnancy-induced] hypertension without significant proteinuria, complicating childbirth (principal); O99.214 Obesity complicating childbirth; E66.01 Morbid (severe) obesity due to excess calories; O34.219 Maternal care for unspecified type scar from previous cesarean delivery; Z3A.37 37 weeks gestation of pregnancy; Z37.0 Single live birth
CPT/HCPCS: 36415; 36600; 80048; 82803; 82977; 83010; 84450; 84460; 84550; 85025; 85032; 85045; 85610; 85730; 86780; 86850; 86900; 86901; 88307-TC; C9803-CS; U0003; U0005